=== PATIENT | male | born 1995 | race Caucasian/White ===

== ENCOUNTER 2020-10-30 04:13 | Emergency (ER) | payer BC, OTHER ==
[2020-10-30] MEDS ORDERED: Sodium Chloride 0.9% 2.5 ML Syringe FLUSH PRN (04:21)
[2020-10-30] MEDS ORDERED: Sodium Chloride 0.9% 10 ML Syringe FLUSH PRN (04:21)
[2020-10-30] MEDS ORDERED: Iopamidol 755 MG/ML 500 ML Multipack Bottle IVPUSH STA (04:38)
[2020-10-30 04:39] LABS: BLOOD UREA NITROGEN,BUN 14 mg/dL (7.0-18.0); CARBON DIOXIDE,CO2 27.5 mmol/L (21.0-32.0); CHLORIDE,CL 105 mmol/L (98-107); GLUCOSE RANDOM 97 mg/dL (74-106); POTASSIUM,K 4.9 mmol/L (3.5-5.1); SODIUM,NA 140 mmol/L (136-148)
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
[2020-10-30] MEDS ORDERED: Sodium Chloride 0.9% 1,000 ML IV SCH (05:30)
== END 2020-10-30 06:14 | disposition home or self-care (01) ==
LOC: MW.ED 04:13
DX: S16.1XXA Strain of muscle, fascia and tendon at neck level, initial encounter (principal); S40.012A Contusion of left shoulder, initial encounter; V47.5XXA Car driver injured in collision with fixed or stationary object in traffic accident, initial encounter; Y92.410 Unspecified street and highway as the place of occurrence of the external cause
CPT/HCPCS: 36415; 70450; 71260; 72125; 74177; 80053; 82550; 85025; 99285; J7030; Q9967

== ENCOUNTER 2025-02-26 21:03 | Day surgery (SDC) | payer MEDICAID, OTHER ==
[2025-02-26 21:46] LABS: BASOPHILS ABSOLUTE AUTO 0.05 K/uL (0.00-0.20); BASOPHILS PERCENT AUTO 0.7 % (0.0-1.0); EOSINOPHILS ABSOLUTE AUTO 0.48 K/uL (0.00-0.45); EOSINOPHILS PERCENT AUTO 7.1 % (0.0-6.0); IMMATURE GRAN ABSOLUTE AUTO 0.00 K/uL (0.00-0.05); IMMATURE GRAN PERCENT AUTO 0.0 % (0.0-0.4); LYMPHOCYTES ABSOLUTE AUTO 1.78 K/uL (1.00-4.80); LYMPHOCYTES PERCENT AUTO 26.5 % (24.0-44.0); MEAN PLATELET VOLUME 9.7 fL (9.4-12.4); MONOCYTES ABSOLUTE AUTO 0.58 K/uL (0.00-0.80); MONOCYTES PERCENT AUTO 8.6 % (0.0-8.0); NEUTROPHILS ABSOLUTE AUTO 3.83 K/uL (1.80-7.70); NEUTROPHILS PERCENT AUTO 57.1 % (41.0-71.0); NRBC ABSOLUTE 0.00 K/uL (0.00-0.02); NRBC PERCENT 0.0 /100WBC (0.0-0.2); PLATELET COUNT,PLT 237 K/uL (150-400); RED BLOOD CELL COUNT 4.37 M/uL (4.52-5.90); WHITE BLOOD CELL COUNT,WBC 6.72 K/uL (3.9-11.3)
[2025-02-26 22:08] LABS: A/G RATIO 1.0 (0.9-1.6); ALANINE AMINOTRANSFERASE,ALT 23.0 IU/L (14-63); ASPARTATE AMNIOTRANSFERASE,AST 16.0 IU/L (15-37); BILIRUBIN TOTAL 0.4 mg/dL (0.2-1.0); BLOOD UREA NITROGEN,BUN 25.0 mg/dL (7.0-18.0); CARBON DIOXIDE,CO2 27.8 mmol/L (21.0-32.0); CHLORIDE,CL 107.0 mmol/L (98-107); CREATININE 1.3 mg/dL (0.8-1.3); EST CRCL DRUG DOSING (CG) 83.09 mL/min; GLUCOSE RANDOM 98.0 mg/dL (74-106); POTASSIUM,K 4.6 mmol/L (3.5-5.1); PROTEIN TOTAL,TP 7.0 g/dL (6.4-8.2); SODIUM,NA 140.0 mmol/L (136-148)
[2025-02-26 22:19] LABS: ESTIMATED GFR 76.0 mL/min (>60)
[2025-02-26] MEDS ORDERED: Propofol 200 MG/20 ML SDV ONE (23:06)
[2025-02-26] MEDS ORDERED: fentaNYL 100 MCG/2 ML SDV ONE (23:06)
[2025-02-26] MEDS ORDERED: Succinylcholine/Sod PF 100 MG/5 ML SYRINGE IV ONE (23:08)
[2025-02-26] MEDS ORDERED: dexmedeTOMIDine HCl 200 MCG/2 ML SDV ONE (23:08)
[2025-02-26] MEDS ORDERED: Lactated Ringers 1,000 ML IV SCH ×2 (23:15→23:45)
[2025-02-26] MEDS ORDERED: Ondansetron 4 MG/2 ML SDV ONE (23:41)
[2025-02-26] MEDS ORDERED: Dexamethasone 4 MG/ML 5 ML MDV ONE (23:41)
== END 2025-02-27 01:15 | disposition home or self-care (01) ==
LOC: MW.ED 21:03 → MW.SDS 22:56 → MW.MS 23:02 → MW.SDS 02-27 01:15
PROVIDERS: ATTEND Surgery
DX: T18.128A Food in esophagus causing other injury, initial encounter (principal); K29.50 Unspecified chronic gastritis without bleeding; K20.0 Eosinophilic esophagitis; W44.F3XA Food entering into or through a natural orifice, initial encounter
CPT/HCPCS: 36415; 43239; 43247; 80053; 85025; 96374; 96375; 99284; J0330; J1100; J1610; J2405; J2704; J2765; J3010; 00731